=== PATIENT | male | born 1940 | race Caucasian/White ===

== ENCOUNTER 2019-06-09 12:09 | Inpatient (IN) | payer BC, MEDICARE ==
[~2019-06-09] VITALS: Ht 175.3 cm; Wt 52.7 kg
[~2019-06-09 12:09] MED LIST: AMLO-363 PO; ASPI-845 PO; CARV80CP PO; CHOL100046 PO; FLO0.4C PO; SERT50TA PO; SIMV5TAB58 PO; THIA100T70 PO
[2019-06-09] MEDS ORDERED: CefTRIAXone 2gm/D5W 50ml 50 ML IV ONE (12:20)
[2019-06-09] MEDS ORDERED: normal saline 1000ML IV soln IVB ONE ×2 (12:20→14:40)
[2019-06-09] MEDS ORDERED: digoxin 250mcg/ml 2ml ampule IV ONE (12:30)
[2019-06-09] MEDS ORDERED: diltiazem 5mg/ml 5ml inj. IV ONE (13:00)
[2019-06-09] MEDS ORDERED: diltiazem-D5W 125mg/125ml 125 ML IV SCH ×2 (13:00→21:20)
[2019-06-09] MEDS ORDERED: diltiazem-NS 100mg/100ml 125 ML IV SCH (13:00)
[2019-06-09 13:34] LABS: BASOPHILS % (AUTO) 0.1 % (0-1); EOSINOPHILS % (AUTO) 0.1 % (0-6); HEMATOCRIT 40.9 % (42.0-52.0); HEMOGLOBIN 13.7 g/dl (14.0-17.9); LYMPHOCYTES # (AUTO) 1.3 X10'3 (1.1-4.8); MEAN CORPUSCULAR HGB CONC 33.5 g/dL (33.0-36.5); MEAN CORPUSCULAR VOLUME 89.4 FL (78-98); MEAN PLATELET VOLUME 7.9 FL (7.4-10.4); MONOCYTES % (AUTO) 7.5 % (2-12); NEUTROPHILS # (AUTO) 10.7 X10'3 (1.8-7.7); NEUTROPHILS % (AUTO) 82.3 % (42-75); PLATELET COUNT 345 X10'3 (140-440); RED BLOOD COUNT 4.57 X10'6 (4.70-6.10); RED CELL DISTRIBUTION WIDTH 13.6 % (11.5-14.5)
[2019-06-09 13:46] LABS: PARTIAL THROMBOPLASTIN TIME 30 SECONDS (22-32)
[2019-06-09 13:55] LABS: ALANINE AMINOTRANSFERASE 18 U/L (12-78); ALBUMIN 1.8 G/DL (3.4-5.0); ALBUMIN/GLOBULIN RATIO 0.4 (1.1-1.5); ALKALINE PHOSPHATASE 103 IU/L (46-116); ANION GAP 12 (8-16); ASPARTATE AMINO TRANSFERASE 17 U/L (10-37); BILIRUBIN,TOTAL 0.2 MG/DL (0.1-1.0); BLOOD UREA NITROGEN 28 MG/DL (7-18); CALCIUM 8.4 MG/DL (8.5-10.1); CHLORIDE 101 MMOL/L (99-107); GLUCOSE 143 MG/DL (70-104); POTASSIUM 3.3 MMOL/L (3.5-5.1); SODIUM 135 MMOL/L (135-145); TOTAL CARBON DIOXIDE 21.7 MMOL/L (24-32); TOTAL PROTEIN 6.2 G/DL (6.4-8.2); eGFR > 90 ML/MIN
[2019-06-09] MEDS ORDERED: enoxaparin 50mg/0.5ml (from 3ml vial) syringe SUBCUT ONE (14:00)
[2019-06-09] MEDS ORDERED: enoxaparin 100mg/ml syringe SUBCUT ONE (14:00)
[2019-06-09 14:04] LABS: ETHANOL < 0.010 GM/DL (0.0-0.010)
[2019-06-09] MEDS ORDERED: VITAMIN A & D PO (15:56)
[2019-06-09] MEDS ORDERED: HYDR25TA4 PO (15:58)
[2019-06-09] MEDS ORDERED: pneumococcal 23-VAL P-sac vacc 25 mcg/0.5ml vial IMVAC ONE (16:20)
[2019-06-09] MEDS ORDERED: magnesium 2GM in 50ml NS 50 ML IV PRN (16:25)
[2019-06-09] MEDS ORDERED: ondansetron/PF 4mg/2ml inj IV PRN (16:25)
[2019-06-09] MEDS ORDERED: potassium CL 10mEq/100ml bag 100 ML IV PRN ×2 (16:25)
[2019-06-09] MEDS ORDERED: mag hydrox/Alum hydrox/simeth 30ml oral suspension PO PRN (16:25)
[2019-06-09] MEDS ORDERED: magnesium Cl slow-release 64mg tablet PO PRN (16:25)
[2019-06-09] MEDS ORDERED: HYDROcodone/acetaminophen 5mg/325mg tablet PO PRN (16:25)
[2019-06-09] MEDS ORDERED: magnesium 4gm in 100ml NS 100 ML IV PRN (16:25)
[2019-06-09] MEDS ORDERED: magnesium hydroxide 30ml (MOM) UD suspension PO PRN (16:25)
[2019-06-09] MEDS ORDERED: diphenhydrAMINE 25mg capsule PO PRN (16:25)
[2019-06-09] MEDS ORDERED: morphine 2 MG/ML inj. syringe IV PRN ×2 (16:25)
[2019-06-09] MEDS: K and/or MAG REPLACEMENT MC SCH (16:25)
[2019-06-09] MEDS ORDERED: acetaminophen 325mg tablet PO PRN ×2 (16:25)
[2019-06-09] MEDS ORDERED: potassium Cl 20 mEq SR tablet PO PRN (16:25)
[2019-06-09] MEDS ORDERED: HYDROcodone/acetaminophen 10/325mg tab PO PRN (16:25)
[2019-06-09] MEDS: normal saline 1000ml 1,000 ML IV SCH (17:31)
--- NOTE | 2019-06-09 18:14 | NUR ---
CALLED PHARMACY FOR THE PNEMONIA VACCINE PER PHARMACIST THEY WILL CHANGE TO MORNING DOSE.
[2019-06-09 18:53] LABS: HEMOGLOBIN A1C 6.2 % (4.5-6.2)
[2019-06-09 19:00] VITALS: BP 105/52
[2019-06-09] MEDS ORDERED: enoxaparin 40mg/0.4ml syringe SUBCUT SCH (20:00)
[2019-06-09] MEDS: atorvastatin 10mg tablet PO SCH (20:11)
--- NOTE | 2019-06-09 20:35 | NUR ---
DR HENDERSON CALLED REGARDING PT HR [id number] GOES UP AND DOWN PT ON CARDIAZEM INFUISNG AT 5MG/HR, PER DR LARA CHANGE THE CARDIZEM INFUSION TO 7.5 MG/HR,WILL FOLLOW THE ORDERS.
[2019-06-09 20:48] LABS: CLARITY,URINE CLEAR (Clear); COLOR,URINE YELLOW (Yellow); GLUCOSE, URINE NEGATIVE (Neg); KETONES,URINE NEGATIVE (Neg); LEUKOCYTE ESTERASE ,URINE TRACE (Neg); NITRITES, URINE POSITIVE (Neg); OCCULT BLOOD,URINE MODERATE (Neg); PROTEIN,URINE TRACE mg/dl (Neg); UROBILINOGEN,URINE 0.2 E.U/dL (0.2-1.0)
[2019-06-09 20:50] LABS: UA COLLECTION TYPE CLN CATCH MIDSTREAM
[2019-06-09 20:54] LABS: BACTERIA,URINE 2+ /HPF (Neg); MUCUS STRANDS NONE SEEN /LPF (Neg); RBC,URINE 0-2 /HPF (0-2); SQUAMOUS EPITHELIAL CELL,UR MODERATE /LPF (FEW)
[2019-06-09 21:00] VITALS: BP 103/68
[2019-06-09] MEDS ORDERED: temazepam 15mg capsule PO PRN (21:00)
[2019-06-09 23:00] VITALS: BP 116/69
[2019-06-09] MEDS ORDERED: furosemide 40mg/4ml inj IV ONE (23:50)
[2019-06-09] MEDS ORDERED: CefTRIAXone/D5W-Rocephin 1gm 50 ML IV SCH (23:50)
[2019-06-09] MEDS ORDERED: ipratropium/albuterol 3ml nebule NEB PRN (23:50)
[2019-06-09] MEDS ORDERED: methylPREDNISolone sod succ 125mg/2ml vial IV ONE (23:50)
--- NOTE | 2019-06-09 23:50 | NUR ---
Patient in room PCU 3019. I have received report from FELICITA Delgadillo and had the opportunity to ask questions and assume patient care. Patient arrived on unit via [facility] with FELICITA Gutierres. Transferred to bed via slide board, hooked up to mobile 67, vitals taken, cardizem drip running at 7.5 ml/hr. Patient belongings placed in closet. Will continue to monitor this patient.
[2019-06-10] VITALS (10 sets, daily range): BP systolic 90–114; BP diastolic 58–78
[2019-06-10 01:19] LABS: ALANINE AMINOTRANSFERASE 18 U/L (12-78); ALBUMIN 1.5 G/DL (3.4-5.0); ALBUMIN/GLOBULIN RATIO 0.4 (1.1-1.5); ALKALINE PHOSPHATASE 83 IU/L (46-116); ANION GAP 11 (8-16); ASPARTATE AMINO TRANSFERASE 18 U/L (10-37); BILIRUBIN,TOTAL 0.2 MG/DL (0.1-1.0); BLOOD UREA NITROGEN 24 MG/DL (7-18); BUN/CREATININE RATIO 37.5 (5.4-32.0); CALCIUM 7.5 MG/DL (8.5-10.1); CHLORIDE 104 MMOL/L (99-107); CREATININE 0.64 MG/DL (0.60-1.10); GLUCOSE 128 MG/DL (70-104); POTASSIUM 3.2 MMOL/L (3.5-5.1); SODIUM 137 MMOL/L (135-145); TOTAL CARBON DIOXIDE 22.3 MMOL/L (24-32); TOTAL PROTEIN 5.1 G/DL (6.4-8.2); eGFR > 90 ML/MIN
[2019-06-10 01:24] LABS: CHOL/HDL RATIO 4.1 (0.00-4.99); CHOLESTEROL 131 MG/DL (0-200); HDL CHOLESTEROL 32 MG/DL (35-60); LDL CHOLESTEROL 82 MG/DL (50-100); MAGNESIUM 1.5 MG/DL (1.5-2.4); TRIGLYCERIDES 111 MG/DL (20-135)
[2019-06-10] MEDS: diltiazem-NS 100mg/100ml 100 ML IV SCH ×5 (03:57→22:13)
[2019-06-10 05:26] LABS: BASOPHILS % (AUTO) 0.3 % (0-1); EOSINOPHILS % (AUTO) 0 % (0-6); HEMATOCRIT 38.6 % (42.0-52.0); HEMOGLOBIN 13.1 g/dl (14.0-17.9); LYMPHOCYTES # (AUTO) 0.6 X10'3 (1.1-4.8); LYMPHOCYTES % (AUTO) 6.6 % (21-51); MEAN CORPUSCULAR HEMOGLOBIN 29.9 PG (27.0-31.0); MEAN CORPUSCULAR VOLUME 88.1 FL (78-98); MEAN PLATELET VOLUME 8.1 FL (7.4-10.4); MONOCYTES # (AUTO) 0.2 X10'3 (0-0.9); MONOCYTES % (AUTO) 1.9 % (2-12); NEUTROPHILS # (AUTO) 8.6 X10'3 (1.8-7.7); NEUTROPHILS % (AUTO) 91.2 % (42-75); PLATELET COUNT 349 X10'3 (140-440); RED BLOOD COUNT 4.38 X10'6 (4.70-6.10); RED CELL DISTRIBUTION WIDTH 13.5 % (11.5-14.5); WHITE BLOOD COUNT 9.5 X10'3 (4.5-11.0)
[2019-06-10] MEDS: potassium Cl 20 mEq SR tablet PO PRN ×3 (05:33→17:12)
[2019-06-10] MEDS: methylPREDNISolone sod succ 125mg/2ml vial IV SCH ×3 (05:37→17:12)
--- NOTE | 2019-06-10 06:18 | NUR ---
Problems reprioritized. Patient report given, questions answered & plan of care reviewed with Sarita Rn, Kelsi RN.
--- NOTE | 2019-06-10 06:43 | NUR ---
Patient in room PCU 3019. I have received report from Maxine MIMS and had the opportunity to ask questions and assume patient care.
[2019-06-10] MEDS ORDERED: magnesium 2GM in 50ml NS 50 ML IV ONE (06:55)
[2019-06-10] MEDS: azithromycin 250mg tablet PO SCH (07:35)
[2019-06-10] MEDS: sertraline 50mg tablet PO SCH (07:35)
[2019-06-10] MEDS: tamsulosin 0.4mg capsule PO SCH (07:35)
[2019-06-10] MEDS: furosemide 40mg/4ml inj IV SCH ×2 (07:36→20:39)
[2019-06-10] MEDS ORDERED: digoxin 250mcg/ml 2ml ampule IV ONE ×2 (08:00→10:00)
[2019-06-10] MEDS: lactobacillus rhamnosus 10,000 MMU CELLS/CAPSULE PO SCH ×2 (08:30→20:29)
[2019-06-10] MEDS: K and/or MAG REPLACEMENT MC SCH (08:42)
[2019-06-10] MEDS ORDERED: pneumococcal 23-VAL P-sac vacc 25 mcg/0.5ml vial IMVAC ONE (10:00)
[2019-06-10] MEDS: enoxaparin 50mg/0.5ml (from 3ml vial) syringe SUBCUT SCH ×2 (10:40→20:30)
--- NOTE | 2019-06-10 12:08 | NUR ---
Malnutrition consult: Pt with general mild weakness, no edema. Documented 25-50% PO intake x 1 meal on heart healthy diet likely not meeting nutrient needs. Current documented wt is pt stated at 116 lbs, most recent scaled wt in EMR is 114 lbs 08/31/14. Attempted visit with pt at bedside however pt was sleeping and did not wake with verbal cues. Pt with visible fat and muscle wasting, meeting criteria for malnutrition, MD notified. Noted in H&P MD recommends Ensure however not yet ordered in EMR, will send MD notification with recommendation for Ensure Enlive TID. ONS to be sent pending MD verification in [employer]. Alternative heart healthy menu left at patient's bedside with RD contact information. Pt admit with SOB and new onset of A. fib with RVR. LBM 06/08. Will continue to follow. Recommendations: 1) Continue with heart healthy diet 2) Ensure Enlive TID, to be sent pending MD verification 3) Encourage PO intake 4) Wt per rx Addendum: 06/10/19 at [address] Amended: Links added.
[2019-06-10] MEDS ORDERED: lactose-reduced food (Ensure Enlive) - 237ml bottle PO SCH (13:00)
--- NOTE | 2019-06-10 18:27 | NUR ---
Problems reprioritized. Patient report given, questions answered & plan of care reviewed with Maxine MIMS.
--- NOTE | 2019-06-10 18:34 | NUR ---
Patient in room PCU 3019. I have received report from FELICITA Stein and had the opportunity to ask questions and assume patient care.
[2019-06-10] MEDS: atorvastatin 10mg tablet PO SCH (20:29)
[2019-06-10] MEDS: normal saline 1000ml 1,000 ML IV SCH (20:30)
[2019-06-11] VITALS (8 sets, daily range): BP systolic 95–156; BP diastolic 60–89
[2019-06-11] MEDS: CefTRIAXone/D5W-Rocephin 1gm 50 ML IV SCH (00:32)
[2019-06-11] MEDS: methylPREDNISolone sod succ 125mg/2ml vial IV SCH ×3 (00:34→11:50)
[2019-06-11 05:55] LABS: BASOPHILS % (AUTO) 0.3 % (0-1); EOSINOPHILS % (AUTO) 0 % (0-6); HEMATOCRIT 35.4 % (42.0-52.0); HEMOGLOBIN 12.1 g/dl (14.0-17.9); LYMPHOCYTES % (AUTO) 7.3 % (21-51); MEAN CORPUSCULAR HEMOGLOBIN 30.1 PG (27.0-31.0); MEAN CORPUSCULAR HGB CONC 34.2 g/dL (33.0-36.5); MEAN CORPUSCULAR VOLUME 88.1 FL (78-98); MEAN PLATELET VOLUME 8.3 FL (7.4-10.4); MONOCYTES # (AUTO) 0.5 X10'3 (0-0.9); MONOCYTES % (AUTO) 3.6 % (2-12); NEUTROPHILS # (AUTO) 11.8 X10'3 (1.8-7.7); NEUTROPHILS % (AUTO) 88.8 % (42-75); PLATELET COUNT 359 X10'3 (140-440); RED BLOOD COUNT 4.02 X10'6 (4.70-6.10); RED CELL DISTRIBUTION WIDTH 13.5 % (11.5-14.5); WHITE BLOOD COUNT 13.3 X10'3 (4.5-11.0)
[2019-06-11 06:06] LABS: ALANINE AMINOTRANSFERASE 23 U/L (12-78); ALBUMIN 1.5 G/DL (3.4-5.0); ALBUMIN/GLOBULIN RATIO 0.4 (1.1-1.5); ALKALINE PHOSPHATASE 79 IU/L (46-116); ANION GAP 11 (8-16); ASPARTATE AMINO TRANSFERASE 11 U/L (10-37); BILIRUBIN,TOTAL 0.1 MG/DL (0.1-1.0); BLOOD UREA NITROGEN 34 MG/DL (7-18); BUN/CREATININE RATIO 37.8 (5.4-32.0); CALCIUM 7.8 MG/DL (8.5-10.1); CHLORIDE 104 MMOL/L (99-107); GLUCOSE 170 MG/DL (70-104); MAGNESIUM 1.8 MG/DL (1.5-2.4); PHOSPHORUS 3.4 MG/DL (2.3-4.5); POTASSIUM 3.5 MMOL/L (3.5-5.1); SODIUM 138 MMOL/L (135-145); TOTAL PROTEIN 5.1 G/DL (6.4-8.2); eGFR 82 ML/MIN
--- NOTE | 2019-06-11 06:18 | NUR ---
Patient in room U 3019. I have received report from Maxine MIMS and had the opportunity to ask questions and assume patient care. Patient awake in bed. Assisted patient with repositioning. No complaints at this time. All immediate needs met.
--- NOTE | 2019-06-11 06:18 | NUR ---
Problems reprioritized. Patient report given, questions answered & plan of care reviewed with FELICITA Hernandez.
[2019-06-11] MEDS ORDERED: potassium Cl 20 mEq SR tablet PO STA (06:38)
[2019-06-11] MEDS: digoxin 250mcg (0.25mg) tablet PO SCH (07:37)
[2019-06-11] MEDS: diltiazem 30mg tablet PO SCH ×3 (07:38→20:44)
[2019-06-11] MEDS: tamsulosin 0.4mg capsule PO SCH (07:38)
[2019-06-11] MEDS: azithromycin 250mg tablet PO SCH (07:38)
[2019-06-11] MEDS: sertraline 50mg tablet PO SCH (07:38)
[2019-06-11] MEDS: lactobacillus rhamnosus 10,000 MMU CELLS/CAPSULE PO SCH ×2 (07:39→20:45)
[2019-06-11] MEDS: enoxaparin 50mg/0.5ml (from 3ml vial) syringe SUBCUT SCH ×2 (07:52→20:45)
[2019-06-11] MEDS: K and/or MAG REPLACEMENT MC SCH (08:00)
[2019-06-11] MEDS ORDERED: pneumococcal 23-VAL P-sac vacc 25 mcg/0.5ml vial IMVAC ONE (10:00)
--- NOTE | 2019-06-11 18:38 | NUR ---
Patient in room PCU 3019. I have received report from Mary RN and Kelsi RN and had the opportunity to ask questions and assume patient care. Checked on patient, he is eating dinner and has no immediate needs. Will continue to monitor.
--- NOTE | 2019-06-11 18:38 | NUR ---
Problems reprioritized. Patient report given, questions answered & plan of care reviewed with Cathleen MIMS. Patient stable at transfer of care.
--- NOTE | 2019-06-11 18:55 | NUR ---
[place] documentation: I have reviewed and agree with all interventions, assessments performed and documented by Kelsi MIMS. [place] Medication Administration: For this medication-pass time frame, all medication were reviewed, dispensed, administered and documented per hospital policy by Kelsi MIMS.
[2019-06-11] MEDS: atorvastatin 10mg tablet PO SCH (20:44)
[2019-06-12] MEDS: CefTRIAXone/D5W-Rocephin 1gm 50 ML IV SCH (00:57)
[2019-06-12] MEDS: diltiazem 30mg tablet PO SCH (01:02)
[2019-06-12 03:00] VITALS: BP 114/70
[2019-06-12 05:39] LABS: ALANINE AMINOTRANSFERASE 38 U/L (12-78); ALBUMIN 1.5 G/DL (3.4-5.0); ALBUMIN/GLOBULIN RATIO 0.5 (1.1-1.5); ALKALINE PHOSPHATASE 73 IU/L (46-116); ANION GAP 8 (8-16); ASPARTATE AMINO TRANSFERASE 22 U/L (10-37); BILIRUBIN,TOTAL 0.1 MG/DL (0.1-1.0); BLOOD UREA NITROGEN 32 MG/DL (7-18); BUN/CREATININE RATIO 42.7 (5.4-32.0); CALCIUM 7.8 MG/DL (8.5-10.1); CHLORIDE 101 MMOL/L (99-107); CREATININE 0.75 MG/DL (0.60-1.10); GLUCOSE 136 MG/DL (70-104); MAGNESIUM 1.6 MG/DL (1.5-2.4); PHOSPHORUS 2.7 MG/DL (2.3-4.5); POTASSIUM 4.2 MMOL/L (3.5-5.1); SODIUM 133 MMOL/L (135-145); TOTAL CARBON DIOXIDE 24.5 MMOL/L (24-32); TOTAL PROTEIN 4.8 G/DL (6.4-8.2); eGFR > 90 ML/MIN
[2019-06-12 05:44] LABS: BASOPHILS % (AUTO) 0.2 % (0-1); EOSINOPHILS % (AUTO) 0 % (0-6); HEMATOCRIT 33.5 % (42.0-52.0); HEMOGLOBIN 11.3 g/dl (14.0-17.9); LYMPHOCYTES # (AUTO) 0.7 X10'3 (1.1-4.8); LYMPHOCYTES % (AUTO) 5.9 % (21-51); MEAN CORPUSCULAR HEMOGLOBIN 29.6 PG (27.0-31.0); MEAN CORPUSCULAR HGB CONC 33.9 g/dL (33.0-36.5); MEAN CORPUSCULAR VOLUME 87.5 FL (78-98); MEAN PLATELET VOLUME 7.4 FL (7.4-10.4); MONOCYTES # (AUTO) 0.5 X10'3 (0-0.9); MONOCYTES % (AUTO) 3.9 % (2-12); PLATELET COUNT 346 X10'3 (140-440); RED BLOOD COUNT 3.82 X10'6 (4.70-6.10); RED CELL DISTRIBUTION WIDTH 13.5 % (11.5-14.5); WHITE BLOOD COUNT 12.3 X10'3 (4.5-11.0)
[2019-06-12 06:00] VITALS: BP 126/81
--- NOTE | 2019-06-12 06:00 | NUR ---
Patient in room PCU 3019. I have received report from FELICITA Connolly and had the opportunity to ask questions and assume patient care.
--- NOTE | 2019-06-12 06:11 | NUR ---
Problems reprioritized. Patient report given, questions answered & plan of care reviewed with Renata MIMS.
[2019-06-12] MEDS: enoxaparin 50mg/0.5ml (from 3ml vial) syringe SUBCUT SCH (08:00)
[2019-06-12] MEDS ORDERED: diltiazem 30mg tablet PO SCH (08:00)
[2019-06-12] MEDS ORDERED: predniSONE 20 mg tablet PO SCH (08:00)
[2019-06-12] MEDS ORDERED: DIGO125T PO (08:29)
[2019-06-12] MEDS ORDERED: ALBU18HF2 IH (08:29)
[2019-06-12] MEDS ORDERED: APIX5TAB3 PO (08:29)
[2019-06-12] MEDS ORDERED: CEFD300C3 PO (08:29)
[2019-06-12] MEDS ORDERED: BUDE10.22 INH (08:29)
[2019-06-12] MEDS ORDERED: ASPI81TA52 PO (08:29)
[2019-06-12] MEDS: lactobacillus rhamnosus 10,000 MMU CELLS/CAPSULE PO SCH (09:16)
[2019-06-12] MEDS: azithromycin 250mg tablet PO SCH (09:17)
[2019-06-12] MEDS: sertraline 50mg tablet PO SCH (09:18)
[2019-06-12] MEDS: tamsulosin 0.4mg capsule PO SCH (09:18)
[2019-06-12] MEDS: digoxin 250mcg (0.25mg) tablet PO SCH (09:18)
--- NOTE | 2019-06-12 11:46 | NUR ---
O2 Sat at rest on room air:94___% If below 89%: Recovery O2 Sat at rest on ___LPM:___%:___% via (mask/nasal cannula, etc..) No further documentation is necessary. If O2 Sat did not drop below 89% on room air,ambulate patient on room air. O2 Sat while ambulating on room air:_84__% Recovery O2 Sat while ambulating on __3_LPM:___% No further documentation is necessary. If patient does not drop below 89% while ambulating, he/she does not qualify for home O2.
--- NOTE | 2019-06-12 13:37 | NUR ---
O2 Sat at rest on room air:__94_% If below 89%: Recovery O2 Sat at rest on ___LPM:___%:___% via (mask/nasal cannula, etc..) No further documentation is necessary. If O2 Sat did not drop below 89% on room air,ambulate patient on room air. O2 Sat while ambulating on room air:__84_% Recovery O2 Sat while ambulating on _3__LPM:__92_% No further documentation is necessary. If patient does not drop below 89% while ambulating, he/she does not qualify for home O2.
== END 2019-06-12 12:07 | disposition home health service (06) | DRG 291 ==
LOC: ER 12:09 → PCU 3S 21:12 → CMPBEDREQ 21:30
PROVIDERS: ADMIT Family Medicine; ATTEND Hospitalist
PROC: 3E0234Z Introduction of Serum, Toxoid and Vaccine into Muscle, Percutaneous Approach (ICD-10-PCS; principal; 2019-06-11)
DX: I11.0 Hypertensive heart disease with heart failure (principal); E43 Unspecified severe protein-calorie malnutrition; I50.31 Acute diastolic (congestive) heart failure; I69.354 Hemiplegia and hemiparesis following cerebral infarction affecting left non-dominant side; Z68.1 Body mass index [BMI] 19.9 or less, adult; E11.9 Type 2 diabetes mellitus without complications; E78.5 Hyperlipidemia, unspecified; F12.10 Cannabis abuse, uncomplicated; F17.210 Nicotine dependence, cigarettes, uncomplicated; I48.91 Unspecified atrial fibrillation; J44.9 Chronic obstructive pulmonary disease, unspecified; N40.0 Benign prostatic hyperplasia without lower urinary tract symptoms; I95.9 Hypotension, unspecified; Z66 Do not resuscitate; F32.9 Major depressive disorder, single episode, unspecified; Z82.49 Family history of ischemic heart disease and other diseases of the circulatory system; Z23 Encounter for immunization; Z71.6 Tobacco abuse counseling; Z71.51 Drug abuse counseling and surveillance of drug abuser; Z79.899 Other long term (current) drug therapy; Z79.82 Long term (current) use of aspirin
CPT/HCPCS: 36415; 71045; 80053; 80061; 80162; 80320; 81001; 82948; 83036; 83605; 83735; 83880; 84100; 84145; 84484; 85025; 85610; 85730; 87040; 87077; 87081; 87088; 87186; 90732; 93005; 93306; 94760; 96365; 96372; 96375; 97110; 97116; 97162; 99285; G0378; J0696; J1160; J1650; J1940; J2930; J3475; J3490; J7030; J7512

== ENCOUNTER 2019-06-26 22:23 | Inpatient (IN) | payer BC, MEDICARE ==
[~2019-06-26] VITALS: Ht 175.3 cm; Wt 52.3 kg
[~2019-06-26 22:23] MED LIST changes: +ALBU18HF2 IH; +APIX5TAB3 PO; -ASPI-845 PO; +ASPI81TA52 PO; +BUDE10.22 INH; +CEFD300C3 PO; -CHOL100046 PO; +DIGO125T PO; -THIA100T70 PO; +VITAMIN A & D PO
--- NOTE | 2019-06-26 23:07 | NUR ---
PT RETURNED FROM XRAY. SPO2 AT 99% ON 10 L NRB. CHANGED TO NC AT 4 L SPO2 AT 91-92%. MD AT BEDSIDE TO ASSESS PT.
[2019-06-26] MEDS ORDERED: furosemide 10 MG/1 ML 10ml inj IV ONE (23:15)
--- NOTE | 2019-06-26 23:15 | NUR ---
PLACED PT BACK ON NRB AT 10 L.
--- NOTE | 2019-06-26 23:18 | NUR ---
RT AT BEDSIDE DRAWING ABG AND SETTING UP BIPAP.
[2019-06-26 23:36] LABS: ABG BASE EXCESS -3.6 mmol/L (-2.0-3.0); ABG HCO3 19.6 mmol/L (22.0-26.0); ABG OXYGEN SATURATION 95.9 % (95-98); ABG PCO2 (T) 29.1 mmHg (35.0-45.0); ABG PH (T) 7.444 (7.350-7.450); ABG PO2 (T) 82.3 mmHg (83-108); ALLEN'S TEST Positive; FCOHb 0.4 % (0.5-1.5); FLOW 10 L/min; FO2Hb 95.5 % (94-100); PATIENT TEMPERATURE 36.3; RESPIRATORY RATE (OBSERVED) 20 b/min; TOTAL HEMOGLOBIN 11.5 G/dl (14.0-17.9)
[2019-06-26 23:42] LABS: BASOPHILS % (AUTO) 0.3 % (0-1); EOSINOPHILS % (AUTO) 0.1 % (0-6); HEMATOCRIT 30.3 % (42.0-52.0); HEMOGLOBIN 10.2 g/dl (14.0-17.9); LYMPHOCYTES % (AUTO) 7.8 % (21-51); MEAN CORPUSCULAR HEMOGLOBIN 29.3 PG (27.0-31.0); MEAN CORPUSCULAR HGB CONC 33.6 g/dL (33.0-36.5); MEAN CORPUSCULAR VOLUME 87.2 FL (78-98); MEAN PLATELET VOLUME 7.7 FL (7.4-10.4); MONOCYTES # (AUTO) 0.7 X10'3 (0-0.9); MONOCYTES % (AUTO) 5.3 % (2-12); NEUTROPHILS # (AUTO) 10.8 X10'3 (1.8-7.7); NEUTROPHILS % (AUTO) 86.5 % (42-75); PLATELET COUNT 238 X10'3 (140-440); RED BLOOD COUNT 3.48 X10'6 (4.70-6.10); RED CELL DISTRIBUTION WIDTH 14.7 % (11.5-14.5); WHITE BLOOD COUNT 12.5 X10'3 (4.5-11.0)
--- NOTE | 2019-06-26 23:43 | NUR ---
RT AT [facility] TO PLACE PT ON BIPAP. PT TOLERATING WELL THUS FAR. LASIX ORDERED.
[2019-06-26 23:51] LABS: D-DIMER 1.64 MG/L FEU (0-0.50)
[2019-06-26 23:53] LABS: ALANINE AMINOTRANSFERASE 21 U/L (12-78); ALBUMIN 1.3 G/DL (3.4-5.0); ALBUMIN/GLOBULIN RATIO 0.4 (1.1-1.5); ALKALINE PHOSPHATASE 92 IU/L (46-116); ANION GAP 9 (8-16); ASPARTATE AMINO TRANSFERASE 19 U/L (10-37); BILIRUBIN,TOTAL 0.3 MG/DL (0.1-1.0); BLOOD UREA NITROGEN 43 MG/DL (7-18); BUN/CREATININE RATIO 55.1 (5.4-32.0); CALCIUM 7.3 MG/DL (8.5-10.1); CHLORIDE 102 MMOL/L (99-107); CREATININE 0.78 MG/DL (0.60-1.10); GLUCOSE 128 MG/DL (70-104); POTASSIUM 3.5 MMOL/L (3.5-5.1); SODIUM 136 MMOL/L (135-145); TOTAL CARBON DIOXIDE 25.3 MMOL/L (24-32); TOTAL PROTEIN 4.7 G/DL (6.4-8.2); eGFR > 90 ML/MIN
[2019-06-27] MEDS ORDERED: iohexol 350MG/ML 100ml bottle IV ONE (00:13)
[2019-06-27] MEDS ORDERED: MOME13HF2 INH (00:19)
[2019-06-27] MEDS ORDERED: HYDR25TA4 PO (00:19)
[2019-06-27] MEDS ORDERED: magnesium 4gm in 100ml NS 100 ML IV PRN (00:20)
[2019-06-27] MEDS ORDERED: magnesium 2GM in 50ml NS 50 ML IV PRN (00:20)
[2019-06-27] MEDS ORDERED: mag hydrox/Alum hydrox/simeth 30ml oral suspension PO PRN (00:20)
[2019-06-27] MEDS ORDERED: magnesium hydroxide 30ml (MOM) UD suspension PO PRN (00:20)
[2019-06-27] MEDS ORDERED: ondansetron/PF 4mg/2ml inj IV PRN (00:20)
[2019-06-27] MEDS ORDERED: potassium Cl 20 mEq SR tablet PO PRN ×2 (00:20)
[2019-06-27] MEDS ORDERED: potassium CL 10mEq/100ml bag 100 ML IV PRN ×2 (00:20)
[2019-06-27] MEDS ORDERED: acetaminophen 325mg tablet PO PRN ×3 (00:20→12:05)
[2019-06-27] MEDS ORDERED: nitroGLYCERIN 0.4mg SUBLingual tab SL PRN (00:20)
[2019-06-27] MEDS ORDERED: magnesium Cl slow-release 64mg tablet PO PRN (00:20)
[2019-06-27] MEDS ORDERED: ASPI-1130 PO (00:22)
[2019-06-27] MEDS ORDERED: APIX5TAB3 PO (00:22)
[2019-06-27] MEDS ORDERED: DIGO125T78 PO (00:22)
[2019-06-27] MEDS ORDERED: ALBU18HF2 IH (00:22)
--- NOTE | 2019-06-27 00:38 | NUR ---
Pt taken to CT. Dr Diaz updated of pt's hypotension, systolic 86-90 w/map 67-71). ok to hold lasix at this time and continue on bipap.
--- NOTE | 2019-06-27 01:30 | NUR ---
DR. AJ UPDATING MYSELF AND DR. DAVEY OF CT READ THAT PT HAS BILATERAL PE'S AND METASTATIC CANCER . PT WITH ADMISSION ORDERS FROM DR. WHALEY AND A ROOM ASSIGNMENT ON PCU. DR. DAVEY CALLING DR. WHALEY TO UPDATE.
[2019-06-27] MEDS ORDERED: enoxaparin 50mg/0.5ml (from 3ml vial) syringe SUBCUT ONE (01:40)
[2019-06-27 02:30] VITALS: BP 85/62
--- NOTE | 2019-06-27 02:30 | NUR ---
Pt arrived to room 3013B from ER, all belongings on person. RT in room setting up BiPap. Pt oriented to room, call light, plan of care and all questions answered. Pt hooked up to mobile 62, vital signs stable. Will continue to monitor
[2019-06-27 05:57] LABS: ALBUMIN 1.2 G/DL (3.4-5.0); ANION GAP 11 (8-16); BLOOD UREA NITROGEN 43 MG/DL (7-18); BUN/CREATININE RATIO 61.4 (5.4-32.0); CALCIUM 7.5 MG/DL (8.5-10.1); CHLORIDE 102 MMOL/L (99-107); GLUCOSE 120 MG/DL (70-104); MAGNESIUM 1.7 MG/DL (1.5-2.4); POTASSIUM 3.5 MMOL/L (3.5-5.1); SODIUM 138 MMOL/L (135-145); TOTAL CARBON DIOXIDE 24.8 MMOL/L (24-32); eGFR > 90 ML/MIN
--- NOTE | 2019-06-27 06:03 | NUR ---
PAGER ID: [phone] MESSAGE: [phone] Laureano Tapia Critical [facility] of [address] [place] [id number]
--- NOTE | 2019-06-27 06:10 | NUR ---
Patient in room PCU 3013. I have received report from Ariela MIMS and had the opportunity to ask questions and assume patient care.
--- NOTE | 2019-06-27 06:17 | NUR ---
Problems reprioritized. Patient report given, questions answered & plan of care reviewed with Brandon MIMS.
[2019-06-27 07:00] VITALS: BP 81/60
[2019-06-27] MEDS ORDERED: aspirin 81mg tablet.DR PO SCH (08:00)
[2019-06-27] MEDS ORDERED: [UNRECOGNIZED DRUG - OTHER] PO SCH (08:00)
[2019-06-27] MEDS ORDERED: losartan 50mg tablet PO SCH (08:00)
[2019-06-27] MEDS ORDERED: HYDROchlorothiazide 25mg tablet PO SCH (08:00)
[2019-06-27] MEDS ORDERED: furosemide 10 MG/1 ML 10ml inj IV SCH (08:00)
[2019-06-27] MEDS ORDERED: digoxin 125mcg (0.125mg) tablet PO SCH (08:00)
[2019-06-27] MEDS ORDERED: CARVEDILOL 80 MG PO SCH (08:00)
[2019-06-27] MEDS ORDERED: K and/or MAG REPLACEMENT MC SCH (08:00)
[2019-06-27] MEDS ORDERED: sertraline 50mg tablet PO SCH (08:00)
[2019-06-27] MEDS ORDERED: apixaban 5mg tablet PO SCH (08:00)
[2019-06-27] MEDS ORDERED: tamsulosin 0.4mg capsule PO SCH (08:00)
[2019-06-27] MEDS ORDERED: amLODIPine 5mg tablet PO SCH (08:00)
[2019-06-27] MEDS ORDERED: VITAMIN A PO SCH (08:00)
[2019-06-27] MEDS ORDERED: normal saline 1000ml 1,000 ML IV ONE (08:25)
--- NOTE | 2019-06-27 10:55 | NUR ---
I WAS IN THE ROOM WITH NICK MIMS. PT LOC X3. DEMANDING TO HAVE BIPAP REMOVED. ALLOWED NC 10L NC APPLIED TO KEEP O2 SAT UP TO 88%. pt requesting comfort care. PT STATES , "HE WANTS TO ". "I WANT COMFORT!". DR SARAH JACKSON. AWAIT CALL BACK. AWAIT FAMILY TO ARRIVE. EARLIER TODAY DR SMITH INFORMED ME THEY WOULD BE HERE AROUND 11 THIS A.M. Addendum: 06/27/19 at 1121 by Criselda Ibarra RN Amended: Links added.
--- NOTE | 2019-06-27 10:55 | NUR ---
Paged Dr. Baumann PAGER ID: [phone] MESSAGE: Brandon MIMS [phone] Laureano Tapia: Pt requesting comfort care. Pt refusing BiPAP. Pt A&O x 4.
[2019-06-27 11:00] VITALS: BP 82/53
[2019-06-27] MEDS ORDERED: morphine 10mg/0.5ml (conc. morphine) oral syringe PO PRN (12:05)
[2019-06-27] MEDS ORDERED: LORazepam 2 mg/ml vial IV PRN (12:05)
[2019-06-27] MEDS: morphine 10mg/ml inj. IV PRN (13:02)
--- NOTE | 2019-06-27 13:36 | NUR ---
Patient's code status has been made DNR with comfort care. Noted that pt with low BMI of 17.0, no nutrition intervention implemented at this time given code status. Diet has been changed from heart healthy to regular. Will continue to follow per comfort care protocol. Recommendations: 1) Continue bowel care per comfort care measures Addendum: 06/27/19 at [address] Amended: Links added.
--- NOTE | 2019-06-27 18:05 | NUR ---
Patient in room PCU 3013. I have received report from Brandon MIMS and had the opportunity to ask questions and assume patient care.
--- NOTE | 2019-06-27 18:07 | NUR ---
Problems reprioritized. Patient report given, questions answered & plan of care reviewed with Ariela MIMS.
[2019-06-27] MEDS ORDERED: docusate sod 100mg capsule PO SCH (20:00)
[2019-06-27] MEDS ORDERED: enoxaparin 50mg/0.5ml (from 3ml vial) syringe SUBCUT SCH (20:00)
[2019-06-27] MEDS ORDERED: atorvastatin 10mg tablet PO SCH (21:00)
[2019-06-28] MEDS: morphine 10mg/ml inj. IV PRN ×5 (01:24→23:01)
[2019-06-28 06:02] LABS: BASOPHILS % (AUTO) 0.2 % (0-1); EOSINOPHILS % (AUTO) 0 % (0-6); HEMATOCRIT 30.2 % (42.0-52.0); HEMOGLOBIN 9.9 g/dl (14.0-17.9); LYMPHOCYTES # (AUTO) 0.8 X10'3 (1.1-4.8); LYMPHOCYTES % (AUTO) 6.7 % (21-51); MEAN CORPUSCULAR HEMOGLOBIN 28.7 PG (27.0-31.0); MEAN CORPUSCULAR HGB CONC 32.7 g/dL (33.0-36.5); MEAN CORPUSCULAR VOLUME 87.5 FL (78-98); MONOCYTES # (AUTO) 0.6 X10'3 (0-0.9); MONOCYTES % (AUTO) 5.1 % (2-12); NEUTROPHILS # (AUTO) 10.6 X10'3 (1.8-7.7); PLATELET COUNT 252 X10'3 (140-440); RED BLOOD COUNT 3.44 X10'6 (4.70-6.10); RED CELL DISTRIBUTION WIDTH 15.1 % (11.5-14.5); WHITE BLOOD COUNT 12.1 X10'3 (4.5-11.0)
--- NOTE | 2019-06-28 07:01 | NUR ---
Problems reprioritized. Patient report given, questions answered & plan of care reviewed with Cari MIMS.
[2019-06-28 07:53] LABS: ALBUMIN 1.2 G/DL (3.4-5.0); ANION GAP 14 (8-16); BLOOD UREA NITROGEN 51 MG/DL (7-18); CALCIUM 7.6 MG/DL (8.5-10.1); CHLORIDE 103 MMOL/L (99-107); CREATININE 0.88 MG/DL (0.60-1.10); GLUCOSE 117 MG/DL (70-104); POTASSIUM 3.6 MMOL/L (3.5-5.1); SODIUM 138 MMOL/L (135-145); TOTAL CARBON DIOXIDE 21.2 MMOL/L (24-32); eGFR 84 ML/MIN
[2019-06-28 11:00] VITALS: BP 71/40
--- NOTE | 2019-06-28 14:47 | NUR ---
Pt. medicated with Morphine two times this shift. Pt. appears able to rest/sleep well after each dose of Morphine. Pt. frequently repositioned for comfort.
--- NOTE | 2019-06-28 18:17 | NUR ---
Problems reprioritized. Patient report given, questions answered & plan of care reviewed with Beatrice MIMS. Addendum: 06/28/19 at 1817 by Cari Benítez RN Amended: Links added.
--- NOTE | 2019-06-28 18:35 | NUR ---
Patient in room PCU 3013. I have received report from Cari MIMS and had the opportunity to ask questions and assume patient care.
[2019-06-28 19:00] VITALS: BP 77/38
[2019-06-29] MEDS: morphine 10mg/ml inj. IV PRN (00:33)
--- NOTE | 2019-06-29 01:35 | NUR ---
Patient on DNR with comfort care at 0058. confirmed with two RNs. Apical pulse and respirations absent. Tele with asystole obtained. Patient was comfortable and with staff present at time of and showed no signs of distress at this time. Kelli Tapia was notified via telephone and offered for her to come in before the mortuary came to pick him up but she did not want to come at this time. Dr. Barfield notified via telephone. Donor network was notified and he will not be a candidate for tissue donation. 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 Patient cleaned up, tele monitor and all lines were removed. Patient has dentures which are left in and glasses which will be sent to [facility] when he gets picked up.
--- NOTE | 2019-06-29 02:20 | NUR ---
Mortuary here to grain picker patient at this time. Patient left with dentures still on and glasses were sent with patient.
== END 2019-06-29 02:25 | disposition expired | DRG 291 ==
LOC: ER 22:24 → PCU 3S 06-27 01:25
PROVIDERS: ADMIT Hospitalist; ATTEND Internal Medicine
PROC: 5A09357 Assistance with Respiratory Ventilation, Less than 24 Consecutive Hours, Continuous Positive Airway Pressure (ICD-10-PCS; principal; 2019-06-27)
PROC: B32T1ZZ Computerized Tomography (CT Scan) of Left Pulmonary Artery using Low Osmolar Contrast (ICD-10-PCS; 2019-06-27)
PROC: B3201ZZ Computerized Tomography (CT Scan) of Thoracic Aorta using Low Osmolar Contrast (ICD-10-PCS; 2019-06-27)
PROC: B32S1ZZ Computerized Tomography (CT Scan) of Right Pulmonary Artery using Low Osmolar Contrast (ICD-10-PCS; 2019-06-27)
DX: I11.0 Hypertensive heart disease with heart failure (principal); I26.99 Other pulmonary embolism without acute cor pulmonale; J96.01 Acute respiratory failure with hypoxia; C78.00 Secondary malignant neoplasm of unspecified lung; I69.354 Hemiplegia and hemiparesis following cerebral infarction affecting left non-dominant side; C64.2 Malignant neoplasm of left kidney, except renal pelvis; E78.5 Hyperlipidemia, unspecified; I50.33 Acute on chronic diastolic (congestive) heart failure; F12.90 Cannabis use, unspecified, uncomplicated; E11.9 Type 2 diabetes mellitus without complications; I48.91 Unspecified atrial fibrillation; J44.9 Chronic obstructive pulmonary disease, unspecified; Z51.5 Encounter for palliative care; Z66 Do not resuscitate; Z87.891 Personal history of nicotine dependence; Z79.899 Other long term (current) drug therapy; Z79.82 Long term (current) use of aspirin; I95.9 Hypotension, unspecified
CPT/HCPCS: 36415; 36600; 71046; 71275; 80048; 80053; 80162; 82803; 83605; 83735; 83880; 85018; 85025; 85379; 87040; 87081; 93005; 93308; 94660; 94760; 99291; G0378; J1650; J1940; J2270; J7030; Q9967